=== PATIENT | male | born 1980 | race Caucasian/White ===

== ENCOUNTER 2017-08-06 17:10 | Emergency (ER) | payer MEDICAID ==
[~2017-08-06] VITALS: Ht 175.3 cm; Wt 76.8 kg
[2017-08-06 17:16] VITALS: Ht 175.3 cm; Wt 76.8 kg
[2017-08-06 18:06] LABS: BASOPHIL % 0.7 % (0-2); PLATELET COUNT 220 x10^3mcL (130-400)
[2017-08-06 18:33] LABS: CALCIUM 9.8 mg/dL (8.5-10.1); CARBON DIOXIDE 25.5 mmol/L (21-32); CHLORIDE SERUM 95 mmol/L (98-107); CREATININE SERUM 1.4 mg/dL (0.7-1.3); GFR1 > 60 mL/min; GLUCOSE SERUM 144 mg/dL (74-106); POTASSIUM SERUM 3.2 mmol/L (3.5-5.1); SODIUM SERUM 136 mmol/L (136-145)
[2017-08-06 18:38] LABS: ALBUMIN 4.7 g/dL (3.4-5.0); ALKALINE PHOSPHATASE 152 U/L (46-116); ALT/SGPT 138 U/L (16-63); AST/SGOT 159 U/L (15-37)
[2017-08-06 18:39] LABS: TOTAL PROTEIN, SERUM 8.5 g/dL (6.4-8.2)
[2017-08-06 20:17] LABS: AMPHETAMINE QUAL UR NONE DETECTED
[2017-08-06 20:32] VITALS: BP 146/90
== END 2017-08-06 20:32 | disposition home or self-care (01) ==
LOC: ED 17:10
PROVIDERS: Emergency Medicine
DX: F41.9 Anxiety disorder, unspecified (principal); K29.70 Gastritis, unspecified, without bleeding; Z88.1 Allergy status to other antibiotic agents
CPT/HCPCS: J2060; J3490; J7030